=== PATIENT | female | born 1980 | race Hispanic/Latino ===

== ENCOUNTER 2017-07-29 12:56 | Emergency (ER) | payer OTHER ==
[2017-07-29 13:32] VITALS: BP 121/79; PULSE 53; RESP 16; TEMP 98.1; O2SAT 99
[2017-07-29] MEDS ORDERED: Lidocaine 5% Patch TD STA (13:40)
--- NOTE | 2017-07-29 13:48 | ED PDOC ---
Upper Extremity Pain/Injury Time Seen by Provider: 07/29/17 13:31 Chief Complaint (Nursing): Upper Extremity Problem/Injury Chief Complaint (Provider): Right shoulder pain History Per: Patient History/Exam Limitations: no limitations Onset/Duration Of Symptoms: Days (2) Current Symptoms Are (Timing): Still Present Additional Complaint(s): Patient is a 37 y/o right hand dominant female with a past medical history of asthma presenting to the emergency department for severe right shoulder pain ongoing for two days with decreased range of motion. Patient notes that the pain began after a nerve test was administered 2 days at her pain management office. Patient states she took Aleve two hours ago with no significant relief. Denies pain elsewhere or other complaints. PCP: none provided. Past Medical History Reviewed: Historical Data, Nursing Documentation, Vital Signs Vital Signs: Last Vital Signs Temp 98.1 F 07/29/17 13:29 Pulse 53 L 07/29/17 13:29 Resp 16 07/29/17 13:29 BP 121/79 07/29/17 13:29 Pulse Ox 99 07/29/17 13:29 - Medical History PMH: Asthma - Surgical History Surgical History: No Surg Hx - Family History Family History: States: No Known Family Hx - Living Arrangements Living Arrangements: With Family - Social History Current smoker - smoking cessation education provided: No Ex-Smoker (has not smoked in the last 12 months): No Alcohol: None Drugs: Cannabis - Home Medications Home Medications: Ambulatory Orders Medication Instructions Recorded Cyclobenzaprine [Cyclobenzaprine 10 mg PO TID PRN #20 tab 07/29/17 HCl] Lidocaine 5% [Lidoderm] 1 ea TD DAILY #30 patch 07/29/17 Nabumetone [Relafen] 500 mg PO BID #20 tab 07/29/17 - Allergies Allergies/Adverse Reactions: Allergies Allergy/AdvReac Type Severity Reaction Status Date / Time tomato Allergy SWELLING Verified 07/29/17 13:29 Review of Systems ROS Statement: Except As Marked, All Systems Reviewed And Found Negative Musculoskeletal: Positive for: Shoulder Pain (right) Physical Exam - Reviewed Nursing Documentation Reviewed: Yes Vital Signs Reviewed: Yes - Physical Exam Appears: Positive for: Non-toxic, No Acute Distress Skin: Positive for: Normal Color Neck: Positive for: Normal, Painless ROM. Negative for: Pain On Movement Of Neck Cardiovascular/Chest: Positive for: Regular Rate, Rhythm Respiratory: Positive for: Normal Breath Sounds. Negative for: Accessory Muscle Use, Respiratory Distress Back: Negative for: Vertebral Tenderness Extremity: Positive for: Tenderness (diffuse tenderness to right shoulder area with decreased ROM) Neurologic/Psych: Positive for: Alert, Oriented (x3) - Laboratory Results Urine POC: Negative - ECG O2 Sat by Pulse Oximetry: 99 (RA) Pulse Ox Interpretation: Normal - Other Rad Right shoulder x-ray X-Ray: Interpreted by Me, Viewed By Me X-Ray Interpretation: no fx, no dis Medical Decision Making Medical Decision Making: Time: 13:40 Initial impression: Right shoulder pain Initial plan: ED Urine Tylenol 975 mg PO Flexeril 10 mg PO Toradol 30 mg IM Lidocaine 5% Right Shoulder X-ray Reevaluation Shoulder x-ray demonstrates no fracture or dislocation. Patient states pain started to improve after meds given. Sling was applied to right arm. Prescriptions given for Relafen and Flexeril. Prescription for topical lidocaine patch also provided. Patient was instructed to follow-up with her chest pain coordinator, she has an appt next week. Scribe Attestation: Documented by Leti Edwards, acting as a scribe for PAIGE Rubin. Provider Scribe Attestation: All medical record entries made by the Scribe were at my direction and personally dictated by me. I have reviewed the chart and agree that the record accurately reflects my personal performance of the history, physical exam, medical decision making, and the department course for this patient. I have also personally directed, reviewed, and agree with the discharge instructions and disposition. Procedures - Splinting Location: right arm Pre-Made Type: sling Pre-Proc Neuro Vasc Exam: normal Post-Proc Neuro Vasc Exam: normal Disposition - Clinical Impression Clinical Impression: Shoulder pain - Patient ED Disposition Is Patient to be Admitted: No Counseled Patient/Family Regarding: Studies Performed, Diagnosis, Need For Followup, Rx Given - Disposition Referrals: [facility], [facility] [Outside] Disposition Time: 15:37 Condition: STABLE Additional Instructions: Rest affected area as much as possible. Take prescription meds as directed as needed for pain. Follow-up with her chest pain coordinator. Prescriptions: Cyclobenzaprine [Cyclobenzaprine HCl] 10 mg PO TID PRN #20 tab PRN Reason: Muscle Spasm Lidocaine 5% [Lidoderm] 1 ea TD DAILY #30 patch Nabumetone [Relafen] 500 mg PO BID #20 tab Instructions: Shoulder Pain (ED) Forms: [place] ([place])
[2017-07-29] MEDS ORDERED: Lidocaine 5% Patch TD ONE (13:50)
--- NOTE | 2017-07-29 14:29 | RAD ---
PROCEDURE: Radiographs of the Right Shoulder HISTORY: Trauma COMPARISON: No prior. FINDINGS: BONES: Bone alignment and mineralization are normal. There is no acute displaced fracture or bone destruction JOINTS: Normal. Glenohumeral and acromioclavicular joints preserved. SOFT TISSUES: Normal. OTHER FINDINGS: None. IMPRESSION: No acute fracture or dislocation.
== END 2017-07-29 15:43 | disposition home or self-care (01) ==
LOC: H.ER 12:56
DX: M25.511 Pain in right shoulder (principal)
CPT/HCPCS: 73030; 81025; 96372; 99284; J1885